=== PATIENT | male | born 1980 | race Caucasian/White ===

== ENCOUNTER 2020-06-15 13:15 | Emergency (ER) | payer OTHER | END 2020-06-15 15:45 | disposition home or self-care (01) | LOC: ER1 13:15 | DX: U07.1 COVID-19 (principal) | CPT/HCPCS: 87081; 87880; 96374; 96375; 99283; J1885; U0002 ==

== ENCOUNTER 2021-06-06 20:37 | Emergency (ER) | payer OTHER | END 2021-06-06 23:20 | disposition left against medical advice (07) | LOC: ER1 20:37 | DX: Z53.21 Procedure and treatment not carried out due to patient leaving prior to being seen by health care provider (principal); Z20.822 Contact with and (suspected) exposure to COVID-19 | CPT/HCPCS: 87081; 87880; U0002 ==